=== PATIENT | male | born 1975 | race Two or more races ===

== ENCOUNTER 2019-09-07 18:00 | Emergency (ER) | payer OTHER ==
[~2019-09-07] VITALS: Ht 185.4 cm; Wt 119.7 kg
== END 2019-09-07 20:16 | disposition home or self-care (01) ==
LOC: ER 18:00
DX: B34.9 Viral infection, unspecified (principal)

== ENCOUNTER 2019-09-19 10:58 | Emergency (ER) | payer OTHER ==
[~2019-09-19] VITALS: Ht 185.4 cm; Wt 119.7 kg
[2019-09-19] MEDS ORDERED: CLEOCIN HCL300 MG PO (14:17)
[2019-09-19] MEDS ORDERED: LEVAQUIN750 MG PO (14:17)
== END 2019-09-19 14:37 | disposition home or self-care (01) ==
LOC: ER 10:58
DX: J03.00 Acute streptococcal tonsillitis, unspecified (principal)

== ENCOUNTER 2021-08-15 19:52 | Emergency (ER) | payer OTHER ==
[~2021-08-15] VITALS: Ht 185.4 cm; Wt 121.1 kg
[~2021-08-15 19:52] MED LIST: CLEOCIN HCL300 MG PO; LEVAQUIN750 MG PO
== END 2021-08-15 21:22 | disposition home or self-care (01) ==
LOC: ER 19:52
DX: B34.9 Viral infection, unspecified (principal); Z20.822 Contact with and (suspected) exposure to COVID-19

== ENCOUNTER 2023-01-08 16:36 | Emergency (ER) | payer OTHER ==
[~2023-01-08] VITALS: Ht 182.9 cm; Wt 121.1 kg
[2023-01-08] MEDS ORDERED: DICLOFENAC SODI75 MG PO (18:14)
== END 2023-01-08 18:19 | disposition home or self-care (01) ==
LOC: ER 16:36
DX: M12.521 Traumatic arthropathy, right elbow (principal); T14.90XS Injury, unspecified, sequela; V03.1 Pedestrian injured in collision with car, pick-up truck or van in traffic accident; I10 Essential (primary) hypertension; Z88.0 Allergy status to penicillin